=== PATIENT | male | born 1940 | race Caucasian/White ===

== ENCOUNTER 2025-05-31 14:07 | Day surgery (SDC) | payer MEDICARE, OTHER, SELFPAY ==
[2025-05-31 14:30] VITALS: BMI 26.7
[2025-05-31 14:31] VITALS: BP 158/83
[2025-05-31 16:04] VITALS: BP 116/72
[2025-05-31 16:15] VITALS: BP 145/83
[2025-05-31 16:22] VITALS: BP 130/79
== END 2025-05-31 16:30 | disposition home or self-care (01) ==
LOC: SDS 14:07
PROVIDERS: ATTENDING PHYSICIAN Internal Medicine Gastroenterology
DX: R13.10 Dysphagia, unspecified (principal); R05.3 Chronic cough; K44.9 Diaphragmatic hernia without obstruction or gangrene; K22.89 Other specified disease of esophagus; K25.9 Gastric ulcer, unspecified as acute or chronic, without hemorrhage or perforation; Q39.9 Congenital malformation of esophagus, unspecified; K20.90 Esophagitis, unspecified without bleeding
CPT/HCPCS: 43239; 88305; 88342

== ENCOUNTER → 2025-06-17 08:58 | Outpatient (REF) | payer MEDICARE, OTHER, SELFPAY | LOC: RST 08:58 | PROVIDERS: ATTENDING PHYSICIAN Internal Medicine Gastroenterology; FAMILY PHYSICIAN Internal Medicine | DX: R05.3 Chronic cough (principal); R13.19 Other dysphagia | CPT/HCPCS: 74230; 92611 ==